=== PATIENT | female | born 1985 | race Caucasian/White ===

== ENCOUNTER → 2017-04-16 | Day surgery (SDC) | payer OTHER ==
[~2017-04-16] MED LIST: BUPIVACAINE HCL PF 0.25% 30 ML VIAL ONE; BUPIVACAINE/EPINEPHRINE 0.25% PF 30 ML VIAL ONE; KETOROLAC TROMETHAMINE 30 MG/ML (IVP) VIAL IV PUSH ONE; LACTATED RINGER'S 1000 ML INJ 1,000 ML ONE; MIDAZOLAM HCL 2 MG/2 ML VIAL ONE; ONDANSETRON HCL 4 MG/2 ML VIAL IV PUSH ONE; PROPOFOL 200 MG/20 ML AMP IV ONE; ceFAZolin 2 GM PREMIX 50 ML ONE
--- NOTE | 2017-04-16 17:51 | MP ---
cc: ISSAC VALLES DPM DATE OF SURGERY 04/16/17 SURGEON Alfonso Valles DPM PREOPERATIVE DIAGNOSIS Right foot fibular sesamoiditis, AVN fracture. POSTOPERATIVE DIAGNOSIS Right foot fibular sesamoiditis, AVN fracture. PROCEDURES PERFORMED Excision of right fibular sesamoid. SPECIMEN Bone ESTIMATED BLOOD LOSS Less than 30 mL COMPLICATIONS None ANESTHESIA General with local, 20 mL of 0.25% Marcaine plain TOURNIQUET TIME 37 minutes at a setting of 250 mmHg about the patient's right ankle. PLAN OF ACTIVITY PACU then DC home once stable per same-day surgery criteria JUSTIFICATION FOR PROCEDURE This is a pleasant 31-year-old female who has undergone treatment for a sesamoid fracture over the last six months. Repeat MRI She shows continued swelling, inflammation or likely AVN. We offered the patient non-weightbearing bone stimulator and surgical intervention. The patient chose surgical intervention. The patient understood there is a chance of hallux varus, chronic pain, scarring of the area. burning, tingling, need for more surgery at a later date. No guarantee is given or implied regarding the outcome. PROCEDURE IN DETAIL Under mild sedation, the patient was brought into the operating room, placed on the operating table in the supine position. Following the induction of general anesthesia, local anesthesia was obtained about the right forefoot utilizing standard block fashion. The right foot was then scrubbed, prepped and draped in the usual aseptic fashion. The foot was elevated, exsanguinated and the previously placed mid calf tourniquet was inflated at 215 mmHg. A half ansari type incision was made at the plantar aspect of the first MPJ being careful to avoid the weightbearing surface of the first metatarsal head. This was a incision down from epidermis to dermis down to subcutaneous fat. Careful loop dissection took place. Careful dissection utilizing 3.5 loops were made through the superficial fat to the deep fat. The neurovascular bundle was identified and retracted laterally. A linear incision was made just lateral to the flexor hallucis longus excising the fibular sesamoid in toto. This was then verified under fluoroscopy. The only sesamoid remaining now is the tibial sesamoid. The wound was flushed with copious amounts of normal saline. The FHL was again visualized, noted to be fully intact. Deep dermis and subcutaneous fat closure took place utilizing Vicryl. Skin was closed utilizing nylon. Upon relieving the tourniquet, there was a prompt hyperemic response to all digits without any delayed capillary fill time. A bulky bandage was placed. The patient was transferred from OR to PACU with all vital signs stable. She is heel transfer weightbear otherwise non-weightbearing. She will ice, elevate. I will see the patient in 3-5 days. RENEE Paez/ /1:49 PM /5:39 PM
== END | disposition home or self-care (01) ==
LOC: ESDC 11:07
PROVIDERS: ATTEND Podiatrist Foot & Ankle Surgery
DX: M25.871 Other specified joint disorders, right ankle and foot (principal)
CPT/HCPCS: 01480; 28315; 73620; 76000; 88305; 88311; J0690; J1885; J2250; J2405; J3010; J7120